=== PATIENT | female | born 1990 | race Caucasian/White ===

== ENCOUNTER 2023-05-02 16:11 | Inpatient (IN) | payer BC, OTHER ==
[2023-05-02] MEDS: LACTATED RINGERS 1,000 ML IV SCH (17:38)
[2023-05-02 17:54] LABS: Basophils % (A) 0 %; Eosinophils # (A) 0.1 k/uL (0-0.7); Eosinophils % (A) 1 %; HGB 11.9 gm/dL (11.4-16.0); Lymphocytes # (A) 1.9 k/uL (1.0-4.8); Lymphocytes % (A) 17 %; MCH 30.1 pg (25.0-35.0); MCV 91.1 fL (80.0-100.0); Mean Platelet Volume 8.9; Monocytes # (A) 0.4 k/uL (0-1.0); Monocytes % (A) 4 %; Neutrophils # (A) 8.6 k/uL (1.3-7.7); Neutrophils % (A) 77 %; Platelet Count 221 k/uL (150-450); RBC 3.95 m/uL (3.80-5.40); RDW 13.3 % (11.5-15.5); WBC 11.2 k/uL (3.8-10.6)
--- NOTE | 2023-05-02 18:44 | P.HPOB ---
History of Present Illness H&P Date: 05/02/23 Chief Complaint: Elective induction of labor This is a 40 year old at 39 weeks and 1 day with EDC of 05/08/2023 by LMP c/w 6 week ultrasound who presents for elective induction of labor. This is an IVF . Otherwise, the has been uncomplicated. A recent growth ultrasound at 34 weeks showed estimated weight in the 52%ile. Maternal serologies: blood type A positive, antibody negative, rubella immune, VDRL non-reactive, HBsAg negative, HIV negative, GBS negative. Patient received TDap vaccine during the . Past Medical History Past Medical History: No Reported History History of Any Multi-Drug Resistant Organisms: None Reported Additional Past Surgical History / Comment(s): gastric sleeve Past Anesthesia/Blood Transfusion Reactions: No Reported Reaction Past Psychological History: No Psychological Hx Reported Smoking Status: Former smoker Past Alcohol Use History: None Reported Past Drug Use History: None Reported Medications and Allergies Home Medications Medication Instructions Recorded Confirmed Type Aspirin 81 mg PO DAILY 05/02/23 05/02/23 History Vit No.179/Iron/Folic 1 tab PO DAILY 05/02/23 05/02/23 History [ Tablet] Allergies Allergy/AdvReac Type Severity Reaction Status Date / Time No Known Allergies Allergy Verified 05/02/23 17:23 Exam Vital Signs Temp Pulse Resp BP Pulse Ox 05/02/23 17:53 96.8 F L 80 18 130/62 96 Intake and Output 05/02/23 05/02/23 05/02/23 06:59 14:59 22:59 Other: Weight 132.449 kg Focused physical exam is performed. This is a healthy-appearing in no apparent distress. Abdomen is soft and gravid. Cervix is closed, long, and high. Cooks catheter is placed with 60cc in each balloon without difficulty. Extremities are non-tender, non-edematous. heart tones are reassuring and reactive on NST. Results Result Diagrams: 05/02/23 17:35 Abnormal Lab Results - Last 24 Hours (Table) 05/02/23 Range/Units 17:37 WBC 11.2 H (3.8-10.6) k/uL Neutrophils # 8.6 H (1.3-7.7) k/uL Assessment and Plan Assessment: 32 year old at 39 weeks and 1 day presenting for elective induction of labor Plan: Cooks catheter, low-dose oxytocin with maximum of 6 while cooks catheter is in place. IV stadol or nubain prn for pain while cooks catheter is in place. NPO diet. Maintenance IV fluids. Continuous monitoring of fetus. Close monitoring of patient. Time with Patient: Less than 30 (15 minutes)
[2023-05-02] MEDS: OXYTOCIN 30 UNITS/500 ML NS 30 UNIT in SALINE 1 500ML.BAG IV SCH (18:45)
[2023-05-02] MEDS: ACETAMINOPHEN TAB 500 MG TAB PO PRN (20:30)
[2023-05-02] MEDS: NALBUPHINE 10 MG/ML (10 ML MDV) IV PRN (22:02)
[2023-05-03] MEDS: LACTATED RINGERS 1,000 ML IV SCH ×5 (00:41→22:56)
[2023-05-03] MEDS: NALBUPHINE 10 MG/ML (10 ML MDV) IV PRN (10:04)
[2023-05-03] MEDS ORDERED: SODIUM CHLORIDE 0.9% 100 ML BAG ONE (13:23)
[2023-05-03] MEDS ORDERED: ROPIVACAINE 5 MG/ML 20 ML AMPULE ONE (13:23)
[2023-05-03] MEDS ORDERED: fentaNYL (PF) 50 MCG/ML 5 ML AMP ONE (13:23)
[2023-05-03] MEDS ORDERED: TRANEXAMIC ACID IN NACL,ISO-OS 1,000 MG in EMPTY BAG 1 BAG IV PRN (20:43)
[2023-05-03] MEDS ORDERED: CARBOPROST TROMETHAMINE 250 MCG/ML 1 ML AMP IM PRN (20:43)
[2023-05-03] MEDS ORDERED: miSOPROStoL 200 MCG TAB PO PRN (20:43)
[2023-05-03] MEDS ORDERED: ceFAZolin 3 GM in SODIUM CHLORIDE 0.9% 100 ML IVPB ONE (20:43)
[2023-05-03] MEDS ORDERED: OXYTOCIN 10 UNIT/ML 1 ML VIAL IM PRN (20:43)
[2023-05-03] MEDS ORDERED: CITRIC ACID-SODIUM CITRATE 15 ML CUP PO ONE (20:43)
[2023-05-03] MEDS ORDERED: METHYLERGONOVINE 0.2 MG/ML 1 ML AMP IM PRN (20:43)
[2023-05-03] MEDS ORDERED: MORPHINE SULFATE (PF) 0.3 MG/0.3 ML SYR ONE (21:09)
[2023-05-03] MEDS ORDERED: OXYTOCIN 30 UNITS/500 ML NS BAG IV ONE (21:09)
[2023-05-03] MEDS ORDERED: ONDANSETRON 4 MG/2 ML VIAL ONE (21:09)
[2023-05-03] MEDS ORDERED: DEXAMETHASONE SOD PHOSPHATE 4 MG/ML 1 ML VIAL ONE (21:09)
[2023-05-03] MEDS ORDERED: OXYTOCIN 10 UNIT/ML 1 ML VIAL ONE (21:09)
[2023-05-03] MEDS ORDERED: HYDROmorphone (PF) 1 MG/ML ONE (21:09)
[2023-05-03] MEDS ORDERED: KETOROLAC 15 MG/ML 1 ML VIAL ONE (21:09)
[2023-05-03] MEDS ORDERED: diphenhydrAMINE 25 MG CAP PO PRN (22:08)
[2023-05-03] MEDS ORDERED: ONDANSETRON 4 MG/2 ML VIAL IVP PRN (22:08)
[2023-05-03] MEDS ORDERED: METOCLOPRAMIDE 5 MG/ML 2 ML VIAL IVP PRN (22:08)
[2023-05-03] MEDS ORDERED: diphenhydrAMINE 50 MG/ML 1 ML VIAL IVP PRN ×2 (22:08)
[2023-05-03] MEDS ORDERED: ZOLPIDEM 5 MG TAB PO PRN (22:08)
[2023-05-03] MEDS ORDERED: LANOLIN CREAM 5 GM TUBE TOPICAL PRN (22:08)
[2023-05-03] MEDS ORDERED: NALOXONE 0.4 MG/ML 1 ML VIAL IV PRN (22:08)
[2023-05-03] MEDS ORDERED: diphenhydrAMINE 50 MG CAP PO PRN (22:08)
[2023-05-03] MEDS ORDERED: SIMETHICONE 80 MG CHEWABLE PO PRN (22:08)
--- NOTE | 2023-05-03 22:20 | P.OP ---
Date of Procedure: 05/03/23 Preoperative Diagnosis: 1. Term IUP at 39 weeks and 2 days 2. Labor dystocia 3. Maternal request for section 4. IVF Postoperative Diagnosis: 1. Term IUP at 39 weeks and 2 days 2. Labor dystocia 3. Maternal request for section 4. IVF 5. Asynclitic presentation Procedure(s) Performed: Primary Lower Transverse Section Implants: None Anesthesia: spinal Surgeon: Geena Mendes Supervisor Telephone Clerks #1: Diego Ibanez Estimated Blood Loss (ml): 400 IV fluids (ml): 500 Urine output (ml): 200 (clear) Pathology: none sent Condition: stable Disposition: floor Indications for Procedure: This is a 32-year-old 1 para 0 at 39 weeks and 2 days with an IVF who presented to labor and delivery on 05/02/2023 for elective in duction of labor. Cook's catheter was initially placed with low-dose oxytocin. After catheter was removed the patient was dilated to 3-1/2 cm and progressed to 5 cm. The patient then remained 5 cm for 8 hours without cervical change. The patient did obtain epidural anesthesia however it was not adequately controlling her pain. The patient tried nitrous oxide for pain relief, however her pain was still not well controlled. At this time the patient requested section. The risks, benefits, and alternatives to section were discussed with the patient including risk of bleeding, infection, damage to surrounding structures including bladder/bowel/ureters, and risk of postoperative VTE. The patient understands these risks and desires to proceed with section. Operative Findings: Viable male in right occiput transverse presentation with head noted to be asynclitic. Light meconium-stained amniotic fluid noted. Apgars 9/9. Weight 6 lbs 15 ounces. Normal uterus, bilateral fallopian tubes and ovaries. Description of Procedure: The patient was taken to the operating room where spinal anesthesia was found to be adequate. 3 grams of Ancef were given for infection prophylaxis. She was prepared and draped in the dorsal supine position with a leftward tilt. A Pfannenstiel skin incision was made with the scalpel. The incision was carried down to the fascia. The fascia was incised and extended laterally with Quinones scissors. The superior aspect of the fascia was grasped with Guillermina clamps. The underlying rectus muscle was dissected off sharply with Quinones scissors. In a similar fashion, the inferior aspect of the fascia was elevated with Guillermina clamps and the rectus muscle and pyramidalis were dissected off. Excellent hemostasis was achieved with the bovie. The rectus muscle was in the midline down to the level of the pubic symphysis. Pre-peritoneal fatty tissue was bluntly dissected to expose the peritoneum. The peritoneum was found to be free of adherent bowel and entered sharply with Quinones scissors. The peritoneal incision was extended superiorly and inferiorly to the bladder reflection with good visualization of the bladder. The bladder blade was inserted and vesicouterine peritoneum was identified. Intraabdominal survey revealed scant, clear peritoneal fluid and the thinned-out lower uterine segment. The vesicouterine peritoneum was opened with scissors and the bladder flap was developed. The bladder blade was repositioned to keep the bladder out of the operative field. The lower uterine segment was incised with a scalpel. Light meconium-stained fluid was noted. The uterine incision was extended bluntly with lateral and upward traction. The fetus was in right occiput transverse position. The head was elevated out of the pelvis with special attention paid to avoid using the uterine incision as a fulcrum. Gentle fundal pressure was applied once the head was brought into the incision. The was delivered with no difficulty. The mouth and nose were suctioned with a bulb. The cord was clamped and cut. The was handed off to the senior technical specialist. IV oxytocin was initiated to facilitate uterine contractions. The placenta was delivered manually after avulsion of the umbilical cord. The uterus was then exteriorized and the inside of the uterus was gently wiped with a lap sponge to assure complete removal of placental membranes. The uterine incision was closed with a 0-Polysorb suture in a running locked fashion. The ovaries and tubes were found to be normal. The uterus, tubes, and ovaries were then gently returned to the abdominal cavity. The blood clots and fluid were wiped out of the abdomen and pelvis with moist laparotomy sponges. The uterine incision was reinspected and excellent hemostasis was noted. The fascial layer was closed with a 0-Vicryl suture. The subcutaneous layer was reapproximated with 2-0 Plain Gut. The skin was closed with 4-0 Monocryl in a subcuticular fashion. The patient tolerated the procedure well. All the counts were correct times two. The patient was taken to the recovery room in a stable condition.
[2023-05-03] MEDS: OXYTOCIN 30 UNITS/500 ML NS 30 UNIT in SALINE 1 500ML.BAG IV SCH (22:55)
[2023-05-04] MEDS: KETOROLAC 15 MG/ML 1 ML VIAL IVP SCH ×3 (05:24→18:23)
[2023-05-04 06:26] LABS: Basophils % (A) 0 %; Eosinophils % (A) 0 %; HCT 35.2 % (34.0-46.0); HGB 11.5 gm/dL (11.4-16.0); Lymphocytes % (A) 5 %; MCH 30.2 pg (25.0-35.0); MCHC 32.5 g/dL (31.0-37.0); MCV 92.8 fL (80.0-100.0); Mean Platelet Volume 8.6; Monocytes % (A) 5 %; Neutrophils # (A) 18.3 k/uL (1.3-7.7); Neutrophils % (A) 90 %; Platelet Count 233 k/uL (150-450); RBC 3.79 m/uL (3.80-5.40); RDW 12.9 % (11.5-15.5); WBC 20.4 k/uL (3.8-10.6)
[2023-05-04] MEDS: LACTATED RINGERS 1,000 ML IV SCH ×4 (08:00→22:56)
--- NOTE | 2023-05-04 08:27 | P.PNOBGPC ---
Subjective - Subjective Principal diagnosis: s/p primary section Interval history: The patient is doing well this morning and had no acute events overnight. Pain is well controlled with medications. She has no complaints this morning. She reports minimal lochia, passing flatus, ambulating, and eating/drinking without nausea or vomiting. Galvin catheter was removed about 3 hours ago and she is still awaiting spontaneous void. She is having difficulties her and plans to meet with today. She denies chest pain, shortness of breathing, fevers, or chills overnight. She denies pain or swelling in the legs. Patient reports: Reports appetite normal, Reports pain well controlled, Reports ambulating normally [employer]: doing well Objective - Vital Signs Latest vital signs: Vital Signs Temp Pulse Resp BP Pulse Ox 05/04/23 03:28 98.3 F 72 16 116/73 95 05/04/23 00:09 68 16 128/62 05/03/23 23:39 62 16 135/63 05/03/23 23:09 66 16 119/66 05/03/23 22:54 97.7 F 65 16 126/69 05/03/23 22:39 54 L 16 115/57 95 05/03/23 22:24 74 16 126/60 95 05/03/23 22:09 75 16 138/68 96 Intake and Output 05/03/23 05/04/23 05/04/23 22:59 06:59 14:59 Intake Total 305.333 Output Total 400 475 Balance -94.667 -475 Intake: Intake, IV Titration 305.333 Amount Oxytocin 30 Units/500 ml 305.333 Ns 30 unit In Saline 1 500ml.bag @ Per Protocol IV .Q0M [facility] Rx#:[id number] Output: Urine 400 Estimated Blood Loss 400 Output, Quantitative 75 Blood Loss Other: Voiding Method Indwelling Catheter # Voids 1 - Exam Extremities: Present: normal Abdomen: Present: normal appearance, soft Incision: Present: normal, dressed Uterus: Present: normal, firm - Labs Labs: Abnormal Lab Results - Last 24 Hours (Table) 05/04/23 Range/Units 05:31 WBC 20.4 H (3.8-10.6) k/uL RBC 3.79 L (3.80-5.40) m/uL Neutrophils # 18.3 H (1.3-7.7) k/uL Assessment and Plan Assessment: 32 year old now POD#1 s/p 1LTCS 2/2 maternal request after long induction Plan: Continue inpatient management. Patient meeting milestones appropriately, continue to monitor closely for void. Patient consented for circumcision of , will do the procedure tomorrow. Anticipate discharge home tomorrow.
[2023-05-04] MEDS: polyethylene glycoL 3350 17 GM POWD.PACK PO SCH (09:00)
[2023-05-04] MEDS: ENOXAPARIN 40 MG/0.4 ML SYRINGE SQ SCH (10:32)
--- NOTE | 2023-05-04 11:19 | P.PN ---
Progress Note - Text 05/04/23 615am 32-year-old female status post with spinal Duramorph. Patient seen and evaluated for postop pain control, patient has a VAS of 1 with no complaints of nausea vomiting minimal pruritus which subside soon
[2023-05-04 20:24] VITALS: RESP 16
[2023-05-04] MEDS: ACETAMINOPHEN TAB 500 MG TAB PO PRN (22:38)
[2023-05-05] MEDS: KETOROLAC 15 MG/ML 1 ML VIAL IVP SCH ×2 (00:24→05:38)
[2023-05-05] MEDS: LACTATED RINGERS 1,000 ML IV SCH (01:49)
[2023-05-05 08:31] VITALS: BP 114/75; PULSE 73; TEMP 98.2
[2023-05-05] MEDS: polyethylene glycoL 3350 17 GM POWD.PACK PO SCH (09:10)
--- NOTE | 2023-05-05 09:16 | P.PNOBGPC ---
Subjective - Subjective Principal diagnosis: s/p primary section Interval history: The patient is doing well this morning and had no acute events overnight. She has no complaints this morning. She reports minimal lochia, passing flatus, voiding without difficulty, ambulating, and eating/drinking without nausea or vomiting. She is who has a tongue tie identified by and this will be clipped by peds today. The also has an epispadias, so he will be referred to urology and circumcision will be deferred at this time. She denies chest pain, shortness of breathing, fevers, or chills overnight. She denies pain or swelling in the legs. Patient reports: Reports appetite normal, Reports voiding normally, Reports pain well controlled, Reports ambulating normally : doing well Objective - Vital Signs Latest vital signs: Vital Signs Temp Pulse Resp BP Pulse Ox 05/05/23 08:00 98.2 F 73 16 114/75 98 05/05/23 00:00 98.4 F 65 16 126/79 96 05/04/23 20:00 97.8 F 79 16 126/78 97 05/04/23 15:41 98.1 F 76 20 123/71 96 05/04/23 12:00 98.4 F 74 20 110/77 97 Intake and Output 05/04/23 05/05/23 05/05/23 22:59 06:59 14:59 Intake Total 480 Output Total 350 Balance 130 Intake: Oral 480 Output: Urine 350 Other: # Voids 1 2 - Exam Extremities: Present: normal Abdomen: Present: normal appearance, soft Incision: Present: normal, dry, intact Uterus: Present: normal, firm Assessment and Plan Assessment: 32 year old now POD#2 s/p 1LTCS 2/2 maternal request after long induction Plan: Continue inpatient management. Patient meeting all milestones appropriately. Will discharge home today.
--- NOTE | 2023-05-05 09:21 | P.DS ---
Providers Date of admission: 05/02/23 17:09 Expected date of discharge: 05/05/23 Attending physician: eGena Mendes MD Primary care physician: Stated None Hospital Course: 32 year old POD#2 s/p 1LTCS 2/2 maternal request after long induction. The patient is doing well this morning and had no acute events overnight. She has no complaints this morning. She reports minimal lochia, passing flatus, voiding without difficulty, ambulating, and eating/drinking without nausea or vomiting. doing well at bedside, will be having a tongue tie clipped today. Circumcision has been deferred secondary to an epispadias. She denies chest pain, shortness of breathing, fevers, or chills overnight. She denies pain or swelling in the legs. Postoperative restrictions are reviewed with the patient including pelvic rest for 6 weeks, no lifting heavier than 15 pounds for 6 weeks. The patient is encouraged to call the office if she experiences any heavy bleeding, foul-smelling discharge, breast complaints, or any if she has any other concerns. She will follow up in the office in 2 weeks for postoperative exam. All questions are answered. Assessment: 32-year-old 1 para 1001 postoperative day #2 status post primary lower transverse section secondary to maternal request after long induction process Patient Condition at Discharge: Good Plan - Discharge Summary Discharge Rx Participant: No New Discharge Prescriptions: No Action Vit No.179/Iron/Folic [ Tablet] 1 tab PO DAILY Aspirin 81 mg PO DAILY Discharge Medication List Aspirin 81 mg PO DAILY 05/02/23 [History] Vit No.179/Iron/Folic [ Tablet] 1 tab PO DAILY 05/02/23 [Hist ory] Follow up Appointment(s)/Referral(s): Geena Mendes MD [STAFF PHYSICIAN] - 1 Week (incision check) Patient Instructions/Handouts: (DC), How to Increase Your Milk Supply (DC), How to Tell if Your Baby is Getting Enough Breast Milk (DC), Depression (DC), Bleeding (DC) Activity/Diet/Wound Care/Special Instructions: No lifting heavier than 15 pounds for 6 weeks. Pelvic rest for 6 weeks. Otherwise, activity as tolerated. Discharge Disposition: HOME SELF-CARE
[2023-05-05] MEDS ORDERED: IBUPROFEN 600 MG TAB PO PRN (09:22)
[2023-05-05] MEDS: ENOXAPARIN 40 MG/0.4 ML SYRINGE SQ SCH (09:59)
== END 2023-05-05 10:45 | disposition home or self-care (01) | DRG 788 ==
LOC: 4FBP 17:09
PROVIDERS: ADMIT Obstetrics & Gynecology; ATTEND Obstetrics & Gynecology
PROC: 10D00Z1 Extraction of Products of Conception, Low, Open Approach (ICD-10-PCS; principal; 2023-05-02)
PROC: 3E033VJ Introduction of Other Hormone into Peripheral Vein, Percutaneous Approach (ICD-10-PCS; 2023-05-02)
DX: O32.2XX0 Maternal care for transverse and oblique lie, not applicable or unspecified (principal); O62.0 Primary inadequate contractions; O77.0 Labor and delivery complicated by meconium in amniotic fluid; Z23 Encounter for immunization; Z37.0 Single live birth; Z3A.39 39 weeks gestation of pregnancy; Z79.82 Long term (current) use of aspirin; Z87.891 Personal history of nicotine dependence
CPT/HCPCS: 85025; 86850; 86900; 86901